=== PATIENT | male | born 1965 | race Caucasian/White ===

== ENCOUNTER 2020-12-13 08:10 | Emergency (ER) | payer OTHER, SELFPAY ==
--- NOTE | ~2020-12-13 | CT_ITS ---
EXAMINATION: CT HEAD WITHOUT CONTRAST CLINICAL INFORMATION: Headache COMPARISON: None TECHNIQUE: Contiguous axial imaging was performed from the skull base to vertex without intravenous administration of contrast. This CT examination was performed using dose optimization techniques as appropriate, variously including the following: *Automated exposure control *Adjustment of mA and/or kV according to patient size (this includes techniques or standardized protocols for targeted exams where dose is matched to indication/reason for exam; i.e. extremities or head) *Use of iterative reconstruction technique DLP: 727 mGy-cm FINDINGS: There is no evidence of acute intracranial hemorrhage or territorial infarction. No abnormal mass effect or midline shift is seen. Anderson to white matter differentiation is well preserved. No extra-axial fluid collections are identified. The ventricles are normal in size. There is no abnormal attenuation within the brain parenchyma. The osseous structures and soft tissues are normal. The mastoid air cells and visualized portions of the paranasal sinuses are well aerated. Mild mucosal thickening is seen in the maxillary sinuses. 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 CT/CT head/brain wo con IMPRESSION: No acute intracranial pathology. Minimal mucosal thickening is seen in the maxillary sinuses.
--- NOTE | 2020-12-13 08:18 | ED.HA ---
HPI - Headache General Chief Complaint: Upper Respiratory Symptoms Stated Complaint: covid + Time Seen by Provider: 12/13/20 08:18 Source: patient and EMS Mode of arrival: EMS Limitations: no limitations History of Present Illness HPI Narrative: 55 yo male dx with COVID on c/o headache only and sweats not responding to tylenol - no other complaints at this time, no AC therapy MD elicited complaint: headache Onset (ago): day(s) (4) Onset description: gradually Location: right and temporal Severity: severe Quality & Timing: throbbing Exacerbating factors: none Relieving factors: nothing Context: occurred at rest Associated symptoms: none Treatments prior to arrival: acetaminophen Related Data Previous Rx's Medication Instructions Recorded cyclobenzaprine 10 mg PO TID PRN #14 tab 12/13/20 hydrocodone-homatropine 5 ml PO Q6H PRN #60 ml 12/13/20 ondansetron 4 mg PO Q8H PRN #20 tab 12/13/20 Allergies Allergy/AdvReac Type Severity Reaction Status Date / Time tetracycline [TETRACYCLINE] Allergy Unknown ANAPHYLAXIS Unverified 07/09/20 14:46 Review of Systems Review of Systems: Constitutional : No Fever, No Chills, No Fatigue ENT/Mouth : No sore throat, No Rhinorrhea Eyes: No Eye Pain, No Swelling, No Redness Cardiovascular : No Chest Pain, No SOB, No Dyspnea on Exertion Respiratory : No Cough, No Sputum Gastrointestinal : No Nausea, No Vomiting, No Diarrhea, No abdominal Pain Genitourinary : No Dysuria, No Urinary Frequency, No Hematuria, Musculoskeletal : No joint pain, No Myalgias, No Joint Swelling Skin : No Skin Lesions, No rash Neuro : No Weakness, No Numbness, No Dizziness, positive Headache Psych : No Anxiety/Panic, No Depression Heme/Lymph: No Bruising, No Bleeding,No Lymphadenopathy Endocrine : No Polyuria, No Polydipsia All other systems reviewed and are negative PMFSH Past Medical History Attestation statement: The following information was validated with the patient. Medical History No active medical problems Social History Social History (Updated 12/13/20 @ 08:24 by Yancy Ibrahim DO) Smoking Status: Never smoker Use of substances other than those prescribed or required for medical reasons: No Advance Directives: No Advance Directives Information Provided: Yes Physical Exam Vital Signs: Vital Signs: Last Vital Signs Temp 98.4 F 12/13/20 08:23 Pulse 74 12/13/20 08:23 Resp 20 12/13/20 08:23 BP 130/87 12/13/20 08:23 Pulse Ox 98 12/13/20 08:23 Body Mass Index 31.4 Appearance: Alert. Oriented X3. No acute distress. Eyes: Pupils equal, round and reactive to light. ENT: Pharynx normal. Neck: Normal inspection. Neck supple. no meningeal signs CVS: Normal heart rate and rhythm. Pulses normal. Respiratory: No respiratory distress. Breath sounds normal. Abdomen: Soft and nontender. Skin: Skin warm and dry. Normal skin color. Normal skin turgor. Extremities: No lower extremity edema. No calf ttp Neuro: Oriented X 3. No motor deficit. No sensory deficit. Course Course Course Narrative: feels better stable for DC MDM - Headache MDM Narrative Medical decision making narrative: 55 yo male with c/o headache since after COVID dx no focal deficits, no meningeal signs states headache not responding to tylenol, no c/o CP/SOB normal sats at 98% at this time will obtain CT head for mass - PO pain medications, dispo per results and improvement Discharge Plan Discharge Clinical Impression: COVID-19 Headache Qualifiers: Headache type: other headache syndrome Qualified Code(s): G44.89 - Other headache syndrome Patient Disposition: Home, Self-Care Instructions: Acute Headache (ED), COVID-19 (Coronavirus Disease 2019) (ED) Additional Instructions: return to ED for any worsening symptoms or concerns Prescriptions: New cyclobenzaprine 10 mg tablet 10 mg PO TID PRN (Reason: muscle spasm) Qty: 14 RF: 0 ondansetron 4 mg tablet,disintegrating 4 mg PO Q8H PRN (Reason: nausea and vomiting) Qty: 20 RF: 0 hydrocodone-homatropine 5-1.5 mg/5 mL (5 mL) syrup 5 ml PO Q6H PRN (Reason: cough) Qty: 60 RF: 0 Stand Alone Forms: Work/School Release
[2020-12-13 08:23] VITALS: BP 130/87; PULSE 74; RESP 20; TEMP 36.9; O2SAT 98; BMI 31.4
[2020-12-13] MEDS: Cyclobenzaprine HCl 10 MG TABLET PO (08:38)
[2020-12-13] MEDS: Ibuprofen 600 MG TABLET PO (08:39)
[2020-12-13] MEDS: HYDROcodone/Homat 5/1.5/5 ML 5 ML SYRUP PO (08:39)
== END 2020-12-13 11:19 | disposition home or self-care (01) ==
PROVIDERS: Emergency Provider Emergency Medicine; PCP Physician Assistant
DX: U07.1 COVID-19 (principal); G44.89 Other headache syndrome
CPT/HCPCS: 70450; 99283; 99284

== ENCOUNTER 2020-12-17 12:43 | Emergency (ER) | payer OTHER, SELFPAY ==
[2020-12-17] VITALS (10 sets, daily range): BP systolic 97–128; BP diastolic 55–71; PULSE 70–92; RESP 18–40; TEMP 36.3–37.1; O2SAT 86–97; BMI 30.7
--- NOTE | ~2020-12-17 | XR_ITS ---
EXAMINATION: XR CHEST CLINICAL INFORMATION: Dyspnea COMPARISON: August 04, 2017 TECHNIQUE: AP portable view of the chest was obtained. FINDINGS: There are diffuse patchy regions of interstitial and airspace disease which can be seen with Covid disease. Heart normal size. No definite evidence of pulmonary edema. No pneumothorax or significant pleural effusion. XR/XR chest 1V IMPRESSION: Bilateral regions of patchy parenchymal disease consistent with Covid.
--- NOTE | 2020-12-17 12:55 | ECG_ITS ---
Test Reason : SOB Blood Pressure : / mmHG Vent. Rate : 084 BPM Atrial Rate : 084 BPM P-R Int : 152 ms QRS Dur : 084 ms QT Int : 348 ms P-R-T Axes : 026 001 -07 degrees QTc Int : 411 ms Normal sinus rhythm Nonspecific T wave abnormality Abnormal ECG No previous ECGs available Referred By: Yancy Ibrahim Electronically Signed By:KRISTA FISCHER MD
[2020-12-17] MEDS: dexAMETHasone sod phosphate 4 MG/ML VIAL 6 MG IVPUSH (13:00)
--- NOTE | 2020-12-17 13:08 | ED.SOB ---
HPI - SOB/Dyspnea General Chief Complaint: Dizziness Stated Complaint: SOB (86% 10LPM), + COVID Time Seen by Provider: 12/17/20 12:52 Source: patient and EMS Mode of arrival: EMS Limitations: no limitations History of Present Illness HPI Narrative: 55-year-old male who has no significant past medical history other than being positive for COVID on 12/10/2020 presenting to the ED via EMS with non-rebreather in place at 10 L satting at 86% with complaints of worsening shortness of breath, dry cough with associated dizziness and nausea over the past few days worse today. When EMS arrived patient was found to be at 60% on room air therefore they placed him on a non-rebreather on 10 L and the patient was satting at 86%. Patient was seen here on 12/13/2020 for a headache and had a CT of his brain which was negative for any acute processes. Reports he has been having intermittent headaches. His is also positive for COVID. Denies any fevers, change of vision, vomiting, chest pain, palpitations, abdominal pain or any other symptoms complaints or concerns at this time. MD elicited complaint: shortness of breath, cough and pain with inspiration Pertinent past history: other (COVID positive on 12/10/2020) Onset (ago): day(s) (The past few days worse today) Context: recent illness (COVID positive) Timing: constant Severity: severe Exacerbating factors: lying flat, exertion, movement, coughing, inspiration, talking and deep breaths Relieving factors: nothing Known history of: other (COVID positive) Associated symptoms: pain with inspiration, cough, orthopnea, nausea/vomiting and dizziness Treatment prior to arrival: oxygen (Oxygen by EMS) Related Data Home oxygen amount: none Home Medications Medication Instructions Recorded Confirmed ascorbic acid (vitamin C) [Vitamin 2,000 mg PO DAILY 12/17/20 12/17/20 C] cholecalciferol (vitamin D3) 50 mcg PO DAILY 12/17/20 12/17/20 multivitamin 1 tab PO DAILY 12/17/20 12/17/20 zinc 50 mg PO DAILY 12/17/20 12/17/20 Previous Rx's Medication Instructions Recorded cyclobenzaprine 10 mg PO TID PRN #14 tab 12/13/20 hydrocodone-homatropine 5 ml PO Q6H PRN #60 ml 12/13/20 ondansetron 4 mg PO Q8H PRN #20 tab 12/13/20 Allergies Allergy/AdvReac Type Severity Reaction Status Date / Time tetracycline [TETRACYCLINE] Allergy Unknown ANAPHYLAXIS Verified 12/17/20 13:34 Review of Systems Review of Systems: Constitutional : + Fatigue/malaise/chills, No Weight loss, No Fever, No Night Sweats ENT/Mouth : + Nasal congestion/sinus pain/rhinorrhea, No Hearing loss, No Ear Pain,No Sinus Pain, No Hoarseness, No sore throat, No Swallowing Difficulty Eyes: No Eye Pain, No Swelling, No Redness, No Foreign Body, No Discharge, No Vision Changes Cardiovascular : + SOB, + Dyspnea on Exertion, + Orthopnea, No Chest Pain, No Edema, No extremity swelling, No Palpitations Respiratory : + Cough/dyspnea, No Sputum, No Wheezing Gastrointestinal : + Nausea, No Vomiting, No Diarrhea, No abdominal Pain, No Hematochezia, No Melena Genitourinary : No irregular bleeding, No Dysuria, No Urinary Frequency, No Hematuria, No Urinary Incontinence, No Urgency, No Flank Pain, No Urinary Flow Changes, No Hesitancy Musculoskeletal : No joint pain, No Myalgias, No Joint Swelling Skin : No Skin Lesions, No rash Neuro : + General Weakness, + Dizziness, + Intermittent headaches, No Focal Weakness, No Numbness, No Paresthesias, No Loss of Consciousness Psych : No Anxiety/Panic, No Depression, No SI/HI/AH/VH Heme/Lymph: No Bruising, No Bleeding,No Lymphadenopathy Endocrine : No Polyuria, No Polydipsia, No Temperature Intolerance Yes all other systems are reviewed and are negative [facility] Past Medical History Attestation statement: The following information was validated with the patient. Medical History No active medical problems Surgical History History of surgery Family History Family History (Updated 12/17/20 @ 17:08 by Domo Bradford MD) Other HTN (hypertension) Social History Social History Alcohol intake: never Smoking Status: Never smoker Advance Directives: No Advance Directives Information Provided: No Physical Exam Vital Signs: Vital Signs: Last Vital Signs Temp 98.8 F 12/17/20 14:22 Pulse 77 12/17/20 16:54 Resp 18 12/17/20 16:54 BP 97/55 L 12/17/20 16:54 Pulse Ox 89 L 12/17/20 16:54 Body Mass Index 30.7 Vital signs have been reviewed as normal and appeared to be correct. Blood pressure low. Heart rate tachycardic. Respiration rate tachypneic. Temperature normal. Oxygen saturation hypoxic. Appearance: Alert. Oriented X3. Acute Moderate respiratory distress. Head: Normal external exam. Normocephalic. Atraumatic. Able to rotate head bilaterally. Eyes: PERRLA. EOMI. No nystagmus noted. Conjunctiva and sclera normal. Eyelids normal. Corneal reflex normal. ENT: EAC normal. TM's Normal. Hearing normal. Pharynx normal. Uvula midline. tongue midline. Moist mucous membranes. No trismus noted. No drooling noted. No muffled voice noted. No nystagmus noted. Neck: Normal inspection. Neck supple. FROM. No adenopathy. Trachea midline. Thyroid Normal. No meningeal signs. No neck mass noted. CVS: Normal heart rate and rhythm. Heart sound normal. No murmurs noted. Pulses normal throughout. Respiratory: Acute Moderate respiratory distress. Decreased breath sounds with inspiratory and expiratory crackles diffusely. Accessory muscle usage noted. No wheezes/rhonchi noted. Chest is nontender. Abdomen: Soft and nontender. Bowel sounds normal in all 4 quadrants. No distention noted. No organomegaly noted. No visible injury noted. Back: No CVA tenderness. Full range of motion noted. Skin: Skin warm and dry. Normal skin color. Normal skin turgor. No rashes/lesions/lacerations noted. Extremities: No lower extremity edema. No calf tenderness noted. Extremities exhibit normal range of motion. Extremities nontender. Able to shrug shoulders bilaterally and keep up against resistance. Neuro: Oriented X 3. No motor deficit. No sensory deficit. Reflexes normal. Moving all extremities. No focal motor deficits. Cranial nerves II-XI intact bilaterally. Facial strength normal. Normal cognition. Speech normal. Gait normal. Strength 5/5 throughout. No tremor noted. No fasciculations noted. No rigidity noted. Muscle tone normal throughout. NIHSS score 0. Course Course Course Narrative: 1PM - 55-year-old male who has no significant past medical history other than being positive for COVID on 12/10/2020 presenting to the ED via EMS with non-rebreather in place at 10 L satting at 86% with complaints of worsening shortness of breath, dry cough with associated dizziness and nausea over the past few days worse today. - on exam patient is noted to be tachycardic at 90, tachypneic at 32 and hypoxic at 86% while on a non-rebreather mask at 10 L in moderate acute respiratory distress. Although patient is alert and oriented x3. Appears well hydrated/well-nourished. - concern for worsening COVID versus pneumonia versus PE - Plan: Patient was immediately placed on high-flow nasal cannula oxygen and is now satting at 90%. Will obtain Labs, CXR, EKG, blood cultures, lactic acid. Provide IV fluids, 6 mg of dexamethasone and plan to admit for COVID with hypoxia then re-evaluate. Reevaluation(s) Reevaluation #1: - WBC 4000 - D-dimer 955 - sodium 132 - BUN 20 - ferritin 5688 - AST/ALT 186/136 - LDH 1320 - troponin 85.5 - CRP 11.97 - Lipase 144 - total protein 6.2 - COVID positive - all other labs are within normal limits. - EKG was normal sinus rhythm no acute ischemic changes noted. - CXR bilateral regions of patchy parenchymal disease consistent with Covid. - plan to admit for COVID with hypoxia Patient understands agrees with this plan. Time: 15:38 Reevaluation #2: - I consulted with the hospitalist who recommended patient be admitted to the ICU there for Dr. Blackburn came down and evaluated the patient and he requested the patient would possibly need to be transferred for further evaluation and treatment therefore sign out to Dr. [place] at this time pending either admit to ICU versus transfer. Time: 17:15 MDM - SOB/Dyspnea Medical Records Attestation: I reviewed the patient's medical records. Lab Data Attestation: I reviewed the patient's lab results. Result diagrams: 12/17/20 14:28 12/17/20 13:19 Labs: Lab Results 12/17/20 12/17/20 12/17/20 Range/Units 13:18 13:18 13:18 WBC (4.8-10.8) X10*3/uL RBC (4.60-5.80) X10*6/uL Hgb (14.0-18.0) g/dl Hct (42-52) % MCV (80-98) fL MCH (27.0-33.0) pg MCHC (31.0-36.0) g/dl RDW (11.0-16.0) % Plt Count (160-400) X10*3/uL MPV (9.4-12.4) fL Immature Gran % (Auto) (0.0-0.4) % Neut % (Auto) (45-73) % Lymph % (Auto) (20-40) % [place] % (Auto) (2-11) % Eos % (Auto) (0-4) % Baso % (Auto) (0-2) % Lymph # (Auto) (1.2-4.9) X10*3/uL [place] # (Auto) (0.1-1.2) X10*3/uL Eos # (Auto) (0.0-0.4) X10*3/uL Baso # (Auto) (0.0-0.2) X10*3/uL Abs Immat Gran (auto) (0.00-0.03) X10*3/uL Absolute Neuts (auto) (2.0-8.3) X10*3/uL Absolute Nucleated RBC (0.0-0.012) X10*3/uL Nucleated RBC % (auto) (0.0-0.2) /100WBC Smear Tech's Comments PT (10.8-13.0) SEC INR (0.9-1.1) APTT (24.1-38.0) SEC D-Dimer NG/ML VBG pH (7.32-7.43) VBG pCO2 mmHg VBG pO2 mmHg VBG HCO3 mmol/L VBG O2 Saturation % VBG Base Excess mmol/L Sodium (135-145) mmol/L Potassium (3.3-5.1) mmol/L Chloride (96-108) mmol/L Carbon Dioxide (22-29) mmol/L Anion Gap (12-20) BUN (9-16) mg/dL Creatinine (0.5-1.4) mg/dL Estim Creat Clear Calc Estimated GFR Random Glucose (60-115) mg/dL Lactic Acid 1.8 (0.5-2.0) mmol/L Calcium (8.4-10.2) mg/dL Magnesium (1.6-2.6) mg/dL Ferritin (20-250) ng/mL Total Bilirubin (0.0-1.0) mg/dL Direct Bilirubin (0.0-0.5) mg/dL AST (5-37) U/L ALT (0-40) U/L Alkaline Phosphatase (39-117) U/L Lactate Dehydrogenase (118-273) U/L Troponin I High Sens 85.5 H (<3.5-35.0) ng/L C-Reactive Protein (< or = 0.50) mg/dL B-Natriuretic Peptide (<100) pg/mL Total Protein (6.5-8.0) g/dL Albumin (3.5-5.0) g/dL Lipase (8-78) U/L Procalcitonin ng/mL COVID-19 (EDU) Positive A (Negative) COVID-19 Clin Com See Note 12/17/20 12/17/20 12/17/20 Range/Units 13:18 13:18 13:18 WBC (4.8-10.8) X10*3/uL RBC (4.60-5.80) X10*6/uL Hgb (14.0-18.0) g/dl Hct (42-52) % MCV (80-98) fL MCH (27.0-33.0) pg MCHC (31.0-36.0) g/dl RDW (11.0-16.0) % Plt Count (160-400) X10*3/uL MPV (9.4-12.4) fL Immature Gran % (Auto) (0.0-0.4) % Neut % (Auto) (45-73) % Lymph % (Auto) (20-40) % [place] % (Auto) (2-11) % Eos % (Auto) (0-4) % Baso % (Auto) (0-2) % Lymph # (Auto) (1.2-4.9) X10*3/uL [place] # (Auto) (0.1-1.2) X10*3/uL Eos # (Auto) (0.0-0.4) X10*3/uL Baso # (Auto) (0.0-0.2) X10*3/uL Abs Immat Gran (auto) (0.00-0.03) X10*3/uL Absolute Neuts (auto) (2.0-8.3) X10*3/uL Absolute Nucleated RBC (0.0-0.012) X10*3/uL Nucleated RBC % (auto) (0.0-0.2) /100WBC Smear Tech's Comments PT (10.8-13.0) SEC INR (0.9-1.1) APTT (24.1-38.0) SEC D-Dimer NG/ML VBG pH (7.32-7.43) VBG pCO2 mmHg VBG pO2 mmHg VBG HCO3 mmol/L VBG O2 Saturation % VBG Base Excess mmol/L Sodium (135-145) mmol/L Potassium (3.3-5.1) mmol/L Chloride (96-108) mmol/L Carbon Dioxide (22-29) mmol/L Anion Gap (12-20) BUN (9-16) mg/dL Creatinine (0.5-1.4) mg/dL Estim Creat Clear Calc Estimated GFR Random Glucose (60-115) mg/dL Lactic Acid (0.5-2.0) mmol/L Calcium (8.4-10.2) mg/dL Magnesium (1.6-2.6) mg/dL Ferritin (20-250) ng/mL Total Bilirubin (0.0-1.0) mg/dL Direct Bilirubin (0.0-0.5) mg/dL AST (5-37) U/L ALT (0-40) U/L Alkaline Phosphatase (39-117) U/L Lactate Dehydrogenase (118-273) U/L Troponin I High Sens (<3.5-35.0) ng/L C-Reactive Protein 11.97 H (< or = 0.50) mg/dL B-Natriuretic Peptide 19 (<100) pg/mL Total Protein (6.5-8.0) g/dL Albumin (3.5-5.0) g/dL Lipase 144 H (8-78) U/L Procalcitonin 0.27 ng/mL COVID-19 (EDU) (Negative) COVID-19 Clin Com 12/17/20 12/17/20 12/17/20 Range/Units 13:18 13:19 13:19 WBC (4.8-10.8) X10*3/uL RBC (4.60-5.80) X10*6/uL Hgb (14.0-18.0) g/dl Hct (42-52) % MCV (80-98) fL MCH (27.0-33.0) pg MCHC (31.0-36.0) g/dl RDW (11.0-16.0) % Plt Count (160-400) X10*3/uL MPV (9.4-12.4) fL Immature Gran % (Auto) (0.0-0.4) % Neut % (Auto) (45-73) % Lymph % (Auto) (20-40) % [place] % (Auto) (2-11) % Eos % (Auto) (0-4) % Baso % (Auto) (0-2) % Lymph # (Auto) (1.2-4.9) X10*3/uL [place] # (Auto) (0.1-1.2) X10*3/uL Eos # (Auto) (0.0-0.4) X10*3/uL Baso # (Auto) (0.0-0.2) X10*3/uL Abs Immat Gran (auto) (0.00-0.03) X10*3/uL Absolute Neuts (auto) (2.0-8.3) X10*3/uL Absolute Nucleated RBC (0.0-0.012) X10*3/uL Nucleated RBC % (auto) (0.0-0.2) /100WBC Smear Tech's Comments PT 14.3 H (10.8-13.0) SEC INR 1.2 H (0.9-1.1) APTT 31.6 (24.1-38.0) SEC D-Dimer 955 NG/ML VBG pH 7.42 (7.32-7.43) VBG pCO2 35 mmHg VBG pO2 42 mmHg VBG HCO3 23 mmol/L VBG O2 Saturation 69.0 % VBG Base Excess -0.6 mmol/L Sodium 132 L (135-145) mmol/L Potassium 3.9 (3.3-5.1) mmol/L Chloride 97 (96-108) mmol/L Carbon Dioxide 26 (22-29) mmol/L Anion Gap 13 (12-20) BUN 20 H (9-16) mg/dL Creatinine 0.95 (0.5-1.4) mg/dL Estim Creat Clear Calc 108.9 Estimated GFR > 60 Random Glucose 114 (60-115) mg/dL Lactic Acid (0.5-2.0) mmol/L Calcium 8.1 L (8.4-10.2) mg/dL Magnesium 2.1 (1.6-2.6) mg/dL Ferritin 5688 H (20-250) ng/mL Total Bilirubin 0.7 (0.0-1.0) mg/dL Direct Bilirubin 0.5 (0.0-0.5) mg/dL AST 186 H (5-37) U/L ALT 136 H (0-40) U/L Alkaline Phosphatase 71 (39-117) U/L Lactate Dehydrogenase 1320 H (118-273) U/L Troponin I High Sens (<3.5-35.0) ng/L C-Reactive Protein (< or = 0.50) mg/dL B-Natriuretic Peptide (<100) pg/mL Total Protein 6.2 L (6.5-8.0) g/dL Albumin 3.8 (3.5-5.0) g/dL Lipase (8-78) U/L Procalcitonin ng/mL COVID-19 (EDU) (Negative) COVID-19 Clin Com 12/17/20 12/17/20 Range/Units 14:28 16:23 WBC 4.1 L (4.8-10.8) X10*3/uL RBC 4.53 L (4.60-5.80) X10*6/uL Hgb 13.2 L (14.0-18.0) g/dl Hct 38.4 L (42-52) % MCV 84.8 (80-98) fL MCH 29.1 (27.0-33.0) pg MCHC 34.4 (31.0-36.0) g/dl RDW 12.8 (11.0-16.0) % Plt Count 152 L (160-400) X10*3/uL MPV 9.1 L (9.4-12.4) fL Immature Gran % (Auto) 0.5 H (0.0-0.4) % Neut % (Auto) 81.6 H (45-73) % Lymph % (Auto) 12.3 L (20-40) % [place] % (Auto) 5.4 (2-11) % Eos % (Auto) 0.0 (0-4) % Baso % (Auto) 0.2 (0-2) % Lymph # (Auto) 0.5 L (1.2-4.9) X10*3/uL [place] # (Auto) 0.2 (0.1-1.2) X10*3/uL Eos # (Auto) 0.0 (0.0-0.4) X10*3/uL Baso # (Auto) 0.0 (0.0-0.2) X10*3/uL Abs Immat Gran (auto) 0.02 (0.00-0.03) X10*3/uL Absolute Neuts (auto) 3.3 (2.0-8.3) X10*3/uL Absolute Nucleated RBC 0.000 (0.0-0.012) X10*3/uL Nucleated RBC % (auto) 0.0 (0.0-0.2) /100WBC Smear Tech's Comments VERIFIED PT (10.8-13.0) SEC INR (0.9-1.1) APTT (24.1-38.0) SEC D-Dimer NG/ML VBG pH (7.32-7.43) VBG pCO2 mmHg VBG pO2 mmHg VBG HCO3 mmol/L VBG O2 Saturation % VBG Base Excess mmol/L Sodium (135-145) mmol/L Potassium (3.3-5.1) mmol/L Chloride (96-108) mmol/L Carbon Dioxide (22-29) mmol/L Anion Gap (12-20) BUN (9-16) mg/dL Creatinine (0.5-1.4) mg/dL Estim Creat Clear Calc Estimated GFR Random Glucose (60-115) mg/dL Lactic Acid (0.5-2.0) mmol/L Calcium (8.4-10.2) mg/dL Magnesium (1.6-2.6) mg/dL Ferritin (20-250) ng/mL Total Bilirubin (0.0-1.0) mg/dL Direct Bilirubin (0.0-0.5) mg/dL AST (5-37) U/L ALT (0-40) U/L Alkaline Phosphatase (39-117) U/L Lactate Dehydrogenase (118-273) U/L Troponin I High Sens 83.8 H (<3.5-35.0) ng/L C-Reactive Protein (< or = 0.50) mg/dL B-Natriuretic Peptide (<100) pg/mL Total Protein (6.5-8.0) g/dL Albumin (3.5-5.0) g/dL Lipase (8-78) U/L Procalcitonin ng/mL COVID-19 (EDU) (Negative) COVID-19 Clin Com Imaging Data Chest x-ray: Attestation: I personally reviewed and interpreted this imaging study as follows: Radiologist's impression: FINDINGS: There are diffuse patchy regions of interstitial and airspace disease which can be seen with Covid disease. Heart normal size. No definite evidence of pulmonary edema. No pneumothorax or significant pleural effusion. XR/XR chest 1V IMPRESSION: Bilateral regions of patchy parenchymal disease consistent with Covid. ECG Data Attestation: I personally reviewed and interpreted this ECG as follows: ECG interpretation date: 12/17/20 ECG interpretation time: 13:38 Interpretation: Normal sinus rhythm with a ventricular rate of 84 with nonspecific T-wave abnormalities no acute ischemic changes noted. No prior EKG to compare to at this time. Critical Care Time Critical Care Time Critical Care Time: Yes Total Critical Care Time: 60 Attestation: I personally attest to this time spent taking care of the patient Discharge Plan Discharge Clinical Impression: COVID-19, Hypoxia Prescriptions: No Action multivitamin Tablet 1 tab PO DAILY RF: 0 ascorbic acid (vitamin C) [Vitamin C] 500 mg Tablet 2,000 mg PO DAILY RF: 0 zinc 50 mg Tablet 50 mg PO DAILY RF: 0 cholecalciferol (vitamin D3) 50 mcg (2,000 unit) Tablet 50 mcg PO DAILY RF: 0 cyclobenzaprine 10 mg tablet 10 mg PO TID PRN (Reason: muscle spasm) Qty: 14 RF: 0 ondansetron 4 mg tablet,disintegrating 4 mg PO Q8H PRN (Reason: nausea and vomiting) Qty: 20 RF: 0 hydrocodone-homatropine 5-1.5 mg/5 mL (5 mL) syrup 5 ml PO Q6H PRN (Reason: cough) Qty: 60 RF: 0
[2020-12-17 13:30] LABS: Base Excess VBG -0.6 mmol/L; HCO3 VBG 23 mmol/L; PCO2 VBG 35 mmHg; PO2 VBG 42 mmHg; pH VBG 7.42 (7.32-7.43)
[2020-12-17 13:43] LABS: COVID-19 Test Positive (Negative); IDNOW Serial# 9DD0AD1C
[2020-12-17 13:44] LABS: INTERNATIONAL NORM RATIO 1.2 (0.9-1.1); Prothrombin Time 14.3 SEC (10.8-13.0)
[2020-12-17 13:47] LABS: D Dimer 955 NG/ML; Partial Thromboplastin Time 31.6 SEC (24.1-38.0)
[2020-12-17 13:53] LABS: Lactic Acid 1.8 mmol/L (0.5-2.0)
[2020-12-17 14:03] LABS: B Type Natriuretic Peptide 19 pg/mL (<100)
[2020-12-17 14:03] LABS: Alanine Aminotransferase 136 U/L (0-40); Albumin Level 3.8 g/dL (3.5-5.0); Alkaline Phosphatase 71 U/L (39-117); Anion Gap 13 (12-20); Aspartate Amino Transferase 186 U/L (5-37); Bilirubin Direct 0.5 mg/dL (0.0-0.5); Bilirubin Total 0.7 mg/dL (0.0-1.0); Blood Urea Nitrogen 20 mg/dL (9-16); Calcium 8.1 mg/dL (8.4-10.2); Carbon Dioxide 26 mmol/L (22-29); Chloride 97 mmol/L (96-108); Creatinine Clr Calc Pharmacy 108.9; Estimated Glomerular Filt Rate > 60; Glucose Random 114 mg/dL (60-115); Lactate Dehydrogenase 1320 U/L (118-273); Magnesium 2.1 mg/dL (1.6-2.6); Potassium 3.9 mmol/L (3.3-5.1); Sodium 132 mmol/L (135-145); Total Protein 6.2 g/dL (6.5-8.0)
[2020-12-17 14:04] LABS: C Reactive Protein 11.97 mg/dL (< or = 0.50)
[2020-12-17 14:05] LABS: Troponin-I High Sensitivity 85.5 ng/L (<3.5-35.0)
--- NOTE | 2020-12-17 14:10 | PC.NURSE ---
Pt in semi fowlers spo2 at 88%, pt positioned to L lateral- spo2 now 92%. Pt c/o sharp headache, starting several days ago, nothing at home works for it
[2020-12-17] MEDS: Acetaminophen 325 MG TABLET 975 MG PO (14:23)
[2020-12-17 14:26] LABS: Lipase 144 U/L (8-78)
[2020-12-17 14:40] LABS: Basophils Percent Auto 0.2 % (0-2); Hematocrit 38.4 % (42-52); Hemoglobin 13.2 g/dl (14.0-18.0); Imm Gran Abs Auto 0.02 X10*3/uL (0.00-0.03); Imm Gran Pct Auto 0.5 % (0.0-0.4); Lymphocytes Absolute Auto 0.5 X10*3/uL (1.2-4.9); Lymphocytes Percent Auto 12.3 % (20-40); MANUAL DIFF FLAG SCAN; Mean Corpuscular HGB Conc 34.4 g/dl (31.0-36.0); Mean Corpuscular Hemoglobin 29.1 pg (27.0-33.0); Mean Corpuscular Volume 84.8 fL (80-98); Mean Platelet Volume 9.1 fL (9.4-12.4); Monocytes Absolute Auto 0.2 X10*3/uL (0.1-1.2); Monocytes Percent Auto 5.4 % (2-11); Neutrophils Absolute Auto 3.3 X10*3/uL (2.0-8.3); Neutrophils Percent Auto 81.6 % (45-73); Platelet Count 152 X10*3/uL (160-400); Red Blood Count 4.53 X10*6/uL (4.60-5.80); Red Cell Distribution Width 12.8 % (11.0-16.0); SCAN SMEAR FLAG 1; White Blood Count 4.1 X10*3/uL (4.8-10.8)
[2020-12-17 15:00] LABS: SLIDE REVIEW VERIFIED
[2020-12-17 15:05] LABS: Ferritin 5688 ng/mL (20-250)
--- NOTE | 2020-12-17 15:09 | PC.NURSE ---
pt is repositioned to right side, states breathing is better in this position.
[2020-12-17 15:47] LABS: Procalcitonin 0.27 ng/mL
--- NOTE | 2020-12-17 16:55 | PM.IMHP ---
History of Present Illness Date of Service: 12/17/20 Chief Complaint: sob hypoxia 55-year-old male presented with chief complaint of being dizzy and hypoxia, patient was tested for COVID on 12/10/2020, patient came to ER on 12/[address] head shows no acute abnormality, patient was not hypoxic at that time and discharged home, patient reported he has flu-like symptoms 7-10 days, patient was noticing increased shortness of breath, was feeling dizzy associated with worsening cough, patient was brought by EMS [facility] Medical History No active medical problems Surgical History History of surgery Social History Alcohol intake: never Smoking Status: Never smoker Advance Directives: No Advance Directives Information Provided: No Meds Allergies Allergy/AdvReac Type Severity Reaction Status Date / Time tetracycline [TETRACYCLINE] Allergy Unknown ANAPHYLAXIS Verified 12/17/20 13:34 Active Medications: Current Medications Generic Name Dose Route Start Last Admin Trade Name Freq PRN Reason Stop Dose Admin Pharmacy Consult 1 each 12/17/20 12:55 Consult Rx Perform Med Rec MISCELLANE ONCE PRN Consult order Home Medications Medication Instructions Recorded Confirmed Last Taken Type ascorbic acid (vitamin C) [Vitamin 2,000 mg PO DAILY 12/17/20 12/17/20 Unknown History C] cholecalciferol (vitamin D3) 50 mcg PO DAILY 12/17/20 12/17/20 Unknown History multivitamin 1 tab PO DAILY 12/17/20 12/17/20 Unknown History zinc 50 mg PO DAILY 12/17/20 12/17/20 Unknown History Physical Exam Vital Signs and Narrative: Vital Signs: Last Vital Signs Temp 98.8 F 12/17/20 14:22 Pulse 83 12/17/20 14:22 Resp 35 H 12/17/20 15:57 BP 104/61 12/17/20 14:22 Pulse Ox 90 L 12/17/20 14:22 Body Mass Index 30.7 Results Labs CBC and Chem 7: 12/17/20 14:28 12/17/20 13:19 Labs: Laboratory Results - last 24 hr 12/17/20 12/17/20 12/17/20 13:18 13:18 13:18 MCV MCH MCHC RDW Plt Count MPV Immature Gran % (Auto) Neut % (Auto) Lymph % (Auto) Cuming % (Auto) Eos % (Auto) Baso % (Auto) Lymph # (Auto) Cuming # (Auto) Eos # (Auto) Baso # (Auto) Abs Immat Gran (auto) Absolute Neuts (auto) Absolute Nucleated RBC Nucleated RBC % (auto) Smear Tech's Comments PT INR APTT D-Dimer VBG pH VBG pCO2 VBG pO2 VBG HCO3 VBG O2 Saturation VBG Base Excess Anion Gap Estim Creat Clear Calc Estimated GFR Random Glucose Lactic Acid 1.8 Calcium Magnesium Ferritin Total Bilirubin Direct Bilirubin AST ALT Alkaline Phosphatase Lactate Dehydrogenase Troponin I High Sens 85.5 H C-Reactive Protein B-Natriuretic Peptide Total Protein Albumin Lipase Procalcitonin COVID-19 (EDU) Positive A COVID-19 beneSol See Note 12/17/20 12/17/20 12/17/20 13:18 13:18 13:18 MCV MCH MCHC RDW Plt Count MPV Immature Gran % (Auto) Neut % (Auto) Lymph % (Auto) Cuming % (Auto) Eos % (Auto) Baso % (Auto) Lymph # (Auto) Cuming # (Auto) Eos # (Auto) Baso # (Auto) Abs Immat Gran (auto) Absolute Neuts (auto) Absolute Nucleated RBC Nucleated RBC % (auto) Smear Tech's Comments PT INR APTT D-Dimer VBG pH VBG pCO2 VBG pO2 VBG HCO3 VBG O2 Saturation VBG Base Excess Anion Gap Estim Creat Clear Calc Estimated GFR Random Glucose Lactic Acid Calcium Magnesium Ferritin Total Bilirubin Direct Bilirubin AST ALT Alkaline Phosphatase Lactate Dehydrogenase Troponin I High Sens C-Reactive Protein 11.97 H B-Natriuretic Peptide 19 Total Protein Albumin Lipase 144 H Procalcitonin 0.27 COVID-19 (EDU) COVID-19 beneSol 12/17/20 12/17/20 12/17/20 13:18 13:19 13:19 MCV MCH MCHC RDW Plt Count MPV Immature Gran % (Auto) Neut % (Auto) Lymph % (Auto) Cuming % (Auto) Eos % (Auto) Baso % (Auto) Lymph # (Auto) Cuming # (Auto) Eos # (Auto) Baso # (Auto) Abs Immat Gran (auto) Absolute Neuts (auto) Absolute Nucleated RBC Nucleated RBC % (auto) Smear Tech's Comments PT 14.3 H INR 1.2 H APTT 31.6 D-Dimer 955 VBG pH 7.42 VBG pCO2 35 VBG pO2 42 VBG HCO3 23 VBG O2 Saturation 69.0 VBG Base Excess -0.6 Anion Gap 13 Estim Creat Clear Calc 108.9 Estimated GFR > 60 Random Glucose 114 Lactic Acid Calcium 8.1 L Magnesium 2.1 Ferritin 5688 H Total Bilirubin 0.7 Direct Bilirubin 0.5 AST 186 H ALT 136 H Alkaline Phosphatase 71 Lactate Dehydrogenase 1320 H Troponin I High Sens C-Reactive Protein B-Natriuretic Peptide Total Protein 6.2 L Albumin 3.8 Lipase Procalcitonin COVID-19 (EDU) COVID-19 beneSol 12/17/20 14:28 MCV 84.8 MCH 29.1 MCHC 34.4 RDW 12.8 Plt Count 152 L MPV 9.1 L Immature Gran % (Auto) 0.5 H Neut % (Auto) 81.6 H Lymph % (Auto) 12.3 L Cuming % (Auto) 5.4 Eos % (Auto) 0.0 Baso % (Auto) 0.2 Lymph # (Auto) 0.5 L Cuming # (Auto) 0.2 Eos # (Auto) 0.0 Baso # (Auto) 0.0 Abs Immat Gran (auto) 0.02 Absolute Neuts (auto) 3.3 Absolute Nucleated RBC 0.000 Nucleated RBC % (auto) 0.0 Smear Tech's Comments VERIFIED PT INR APTT D-Dimer VBG pH VBG pCO2 VBG pO2 VBG HCO3 VBG O2 Saturation VBG Base Excess Anion Gap Estim Creat Clear Calc Estimated GFR Random Glucose Lactic Acid Calcium Magnesium Ferritin Total Bilirubin Direct Bilirubin AST ALT Alkaline Phosphatase Lactate Dehydrogenase Troponin I High Sens C-Reactive Protein B-Natriuretic Peptide Total Protein Albumin Lipase Procalcitonin COVID-19 (EDU) COVID-19 Ve[facility] Video Com Imaging Radiologist's Impressions: Impressions Chest X-Ray 12/17/20 12:56 IMPRESSION: Bilateral regions of patchy parenchymal disease consistent with Covid.
[2020-12-17 17:01] LABS: Troponin-I High Sensitivity 83.8 ng/L (<3.5-35.0)
--- NOTE | 2020-12-17 17:17 | P.EN_ITS ---
Event Note Date of Service: 12/17/20 Event Note: Asked to see patient for admission, patient seen and examined at b edside patient is currently on 100 % high-flow and nasal cannula desatting with minimal change in position, blood pressure on softer side,given patient unstable for IMC , case discussed with salesforce specialist and the ER physician, patient being evaluated by ICU
--- NOTE | 2020-12-17 17:45 | P.CONCC_ITS ---
History of Present Illness Data of Consult Service Date: 12/17/20 Primary Care Provider: SELENA Gibson HPI I was called to see Mr. Skinner in the ED bec of acute hypoxemic resp failure 2? bilat COVID pneumonia. The patient is a healthy 55 yo man with PMHx of HTN. Ht 6?, weight 102kg. Works as a experienced truck driver. On Dec 09, he had headache and nasal congestion. He and his went to get tested for COVID the next day, and both were positive. He tells me that his is doing fine. BIBA to the ED about noon today bec of worsening shortness of breath, dry cough with associated dizziness and nausea over the past few days, worse today. When EMS arrived, patient was found to have Sat 60% on room air. On 10L NRBFM, he was satting at 86%. Denied any fevers, change of vision, vomiting, chest pain, palpitations, abdominal pain or any other symptoms complaints or concerns at this time. On my exam in the ED, he?s fully awake and appropriate, converses easily. Very robust, healthy, and nontoxic appearing. RR is low 30s, Sat is 90% on HFNC 60L/100% + NRBFM. No accessory musc use. No increased WOB other than that attributable to his resp rate. LABORATORY DATA: As below. CXR: Bilateral diffuse patchy parenchymal disease very consistent with COVID. IMPRESSION: 1. Severe bilateral COVID pneumonia. 2. Acute hypoxemic respiratory failure. Secondary to above. I?m very concerned for this patient's survivability. He is an ideal candidate for ECMO and in my opinion, the likelihood is that he may well need it within a week. Therefore, I?m looking to transfer him out to an ECMO Center. The patient has already been given Decadron 6mg. I wrote him for another 40mg Solu-Medrol and the first dose of remdesivir. ADDENDUM at 6pm: First center I called was [facility]. Spoke with ICU Fellow, Dr. Spivey. She accepted the patient. Dr. Case is accepting attending physician. Transfer to ICU on CPAP. Discussed with Dr. [place]. Critical care time: 40 min. [facility] Past Medical History Medical History No active medical problems Family History Family History (Updated 12/17/20 @ 17:08 by Domo Bradford MD) Other HTN (hypertension) Surgical History Surgical History History of surgery Social History Social History Alcohol intake: never Smoking Status: Never smoker Advance Directives: No Advance Directives Information Provided: No Meds Allergies Allergy/AdvReac Type Severity Reaction Status Date / Time tetracycline [TETRACYCLINE] Allergy Unknown ANAPHYLAXIS Verified 12/17/20 13:34 Active Medications: Current Medications Generic Name Dose Route Start Last Admin Trade Name Freq PRN Reason Stop Dose Admin Pharmacy Consult 1 each 12/17/20 12:55 Consult Rx Perform Med Rec MISCELLANE ONCE PRN Consult order Home Medications Medication Instructions Recorded Confirmed Last Taken Type ascorbic acid (vitamin C) [Vitamin 2,000 mg PO DAILY 12/17/20 12/17/20 Unknown History C] cholecalciferol (vitamin D3) 50 mcg PO DAILY 12/17/20 12/17/20 Unknown History multivitamin 1 tab PO DAILY 12/17/20 12/17/20 Unknown History zinc 50 mg PO DAILY 12/17/20 12/17/20 Unknown History Physical Exam Vital Signs: Vital Signs: Last Vital Signs Temp 98.8 F 12/17/20 14:22 Pulse 77 12/17/20 16:54 Resp 18 12/17/20 16:54 BP 97/55 L 12/17/20 16:54 Pulse Ox 89 L 12/17/20 16:54 Body Mass Index 30.7 Results Labs CBC & Chem 7: 12/17/20 14:28 12/17/20 13:19 Labs: Short CBC 12/17/20 Range/Units 14:28 WBC 4.1 L (4.8-10.8) X10*3/uL Hgb 13.2 L (14.0-18.0) g/dl Hct 38.4 L (42-52) % Plt Count 152 L (160-400) X10*3/uL BMP 12/17/20 13:19 Sodium 132 L Potassium 3.9 Chloride 97 Carbon Dioxide 26 BUN 20 H Creatinine 0.95 Calcium 8.1 L Liver Function 02/25/21 Range/Units 13:19 Total Bilirubin 0.7 (0.0-1.0) mg/dL Direct Bilirubin 0.5 (0.0-0.5) mg/dL AST 186 H (5-37) U/L ALT 136 H (0-40) U/L Alkaline Phosphatase 71 (39-117) U/L Albumin 3.8 (3.5-5.0) g/dL
--- NOTE | 2020-12-17 17:45 | PC.NURSE ---
Dr. Blackburn at bedside for eval and possible ICU admission. Per MD, possible transfer to hospital w/ [facility]. Pt aware of plan and is agreeable at this time. Pt tolerating high flow and non rebreather well- spo2 maintaining in low 90s.
== END 2020-12-17 19:16 | disposition short-term general hospital (02) ==
PROVIDERS: Physician Assistant Medical; Emergency Provider Emergency Medicine; PCP Physician Assistant
DX: U07.1 COVID-19 (principal); R09.02 Hypoxemia; R00.0 Tachycardia, unspecified; R51.9 Headache, unspecified
CPT/HCPCS: 36415; 71045; 80048; 80076; 82728; 82803; 83605; 83615; 83690; 83735; 83880; 84145; 84484; 85025; 85379; 85610; 85730; 86140; 87040; 87635; 93005; 94660; 96374; 96375; 99284; 99285; J1100; J2920